=== PATIENT | female | born 1965 | race African-American/Black ===

== ENCOUNTER 2019-07-08 08:28 | Inpatient (IN) | payer MEDICAID, OTHER ==
[~2019-07-08] VITALS: Ht 160 cm; Wt 78.0 kg
[2019-07-08] MEDS ORDERED: SODIUM CHLORIDE 0.9% 1,000 ML IV ONE (08:46)
[2019-07-08] MEDS ORDERED: ONDANSETRON HCL 4MG/2ML INJ IV STA (08:46)
[2019-07-08 09:38] LABS: CHLORIDE 105 mEq/L (98-107); PROTHROMBIN TIME 10.7 sec (9.6-11.0)
[2019-07-08] MEDS ORDERED: ACETAMINOPHEN 325MG TABLET PO STA (09:58)
[2019-07-08] MEDS ORDERED: ACETAMINOPHEN 650MG SUPP PR ONE ×2 (10:15→17:15)
[2019-07-08] MEDS ORDERED: SODIUM CHLORIDE 0.9% 1000ML BAG (SEPSIS BOLUS) IV ONE (10:15)
[2019-07-08] MEDS ORDERED: PIPERACILLIN/TAZ 3.375G PREMIX 50 ML IV ONE (10:30)
[2019-07-08] MEDS ORDERED: VANCOMYCIN 1 G PREMIX 200 ML IV ONE (10:30)
[2019-07-08 10:35] LABS: EOSINOPHILS % 0.2 % (0.0-5.0); HEMATOCRIT. 34.2 % (36.0-48.0); HEMOGLOBIN. 11.4 g/dL (12.0-16.0); LYMPHOCYTES % 16.8 % (20.0-50.0); MEAN CORPUSCULAR HEMOGLOBIN 28.7 pg (28.0-32.0); MEAN CORPUSCULAR VOLUME 86.4 fL (81.0-99.0); MEAN PLATELET VOLUME 11.6 fl (7.4-10.4); MONOCYTES % 2.8 % (2.0-8.0); NEUTROPHILS % 79.2 % (40.0-76.0); RED BLOOD CELL COUNT 3.96 mill/uL (4.2-5.4); RED CELL DISTRIBUTION WIDTH 15.4 % (11.6-14.6)
[2019-07-08 10:37] LABS: PLATELET 26 x1000/uL (130-400)
[2019-07-08 11:41] LABS: PLATELET ESTIMATE MARKEDLY DECREASED
[2019-07-08] MEDS ORDERED: HYDROXYCHLOROQUINE SULFATE 200MG TABLET PO STA (12:40)
[2019-07-08] MEDS ORDERED: SODIUM CHLORIDE 0.45% 1,000 ML IV SCH (13:53)
[2019-07-08] MEDS ORDERED: MORPHINE SULFATE 2 MG/ML CPJ (NOT FOR IM USE) IV PRN (14:00)
[2019-07-08] MEDS ORDERED: MAGNESIUM/ALUMINUM HYDROXIDE/SIMETHICONE 30ML UDC PO PRN (14:00)
[2019-07-08] MEDS ORDERED: ONDANSETRON HCL 4MG/2ML INJ IV PRN (14:00)
[2019-07-08] MEDS: SODIUM CHLORIDE 0.9% 1,000 ML IV SCH (16:21)
[2019-07-08 16:46] LABS: BG BASE EXCESS -7.8 mmol/L (-2.0-2.0); BG CARBOXYHEMOGLOBIN 1.8 % (0.5-1.5); BG DEOXYHEMOGLOBIN 1.4 % (0.0-5.0); BG FRACTION INSPIRED OXYGEN 36; BG HCO3 ACT 15.4 mmol/L (22.0-26.0); BG METHEMOGLOBIN 0.7 % (0.0-1.5); BG OXYGEN SATURATION 98.6 % (92.0-98.5); BG OXYHEMOGLOBIN 96.1 % (94.0-97.0); BG PCO2 24.1 mmHg (35.0-45.0); BG PH 7.422 (7.350-7.450); BG PO2 146.1 mmHg (75.0-100.0); BG SAMPLE SITE RIGHT RADIAL; BG TOTAL HEMOGLOBIN 9.7 g/dL (12.0-18.0); BG VENT MODE NASAL CANNULA
[2019-07-08 18:05] LABS: CLARITY URINE CLOUDY (CLEAR); COLOR URINE ORANGE (YELLOW); KETONES URINE NEGATIVE (NEGATIVE); LEUKOCYTE ESTERASE URINE 1+ (NEGATIVE); NITRITE URINE POSITIVE (NEGATIVE); OCCULT BLOOD URINE TRACE (NEGATIVE); PH URINE 5.5 (4.5-8.0); PROTEIN URINE 2+ (NEGATIVE); SPECIFIC GRAVITY URINE 1.027 (1.005-1.030)
[2019-07-08] MEDS: HYDROXYCHLOROQUINE SULFATE 200MG TABLET PO SCH (21:50)
[2019-07-08] MEDS: ACETAMINOPHEN 325MG TABLET PO PRN (22:07)
[2019-07-08 23:04] VITALS: BP 113/74
[2019-07-08] MEDS ORDERED: ONDA4TAB5 PO (23:14)
[2019-07-08] MEDS ORDERED: FAMO20TA8 PO (23:14)
[2019-07-08] MEDS ORDERED: MECL-159 PO (23:14)
[2019-07-08 23:15] VITALS: BP 113/74
[2019-07-08 23:30] VITALS: BP 110/66
[2019-07-09] VITALS (58 sets, daily range): BP systolic 58–196; BP diastolic 19–110
[2019-07-09] MEDS: SODIUM CHLORIDE 0.9% 1,000 ML IV SCH ×3 (00:47→15:59)
[2019-07-09 06:13] LABS: BASOPHILS % 0.4 % (0.0-2.0); EOSINOPHILS % 0.1 % (0.0-5.0); HEMOGLOBIN. 8.4 g/dL (12.0-16.0); LYMPHOCYTES % 27.6 % (20.0-50.0); MEAN CORPUSCULAR HEMOGLOBIN 29.6 pg (28.0-32.0); MEAN CORPUSCULAR VOLUME 88.1 fL (81.0-99.0); MEAN PLATELET VOLUME 11.2 fl (7.4-10.4); MONOCYTES % 7.3 % (2.0-8.0); NEUTROPHILS % 64.6 % (40.0-76.0); RED BLOOD CELL COUNT 2.84 mill/uL (4.2-5.4); RED CELL DISTRIBUTION WIDTH 15.8 % (11.6-14.6)
[2019-07-09 06:32] LABS: PLATELET 35 x1000/uL (130-400)
[2019-07-09 06:44] LABS: CHLORIDE 114 mEq/L (98-107)
[2019-07-09] MEDS: GUAIFENESIN 600MG ER TABLET PO SCH ×2 (10:00→20:29)
[2019-07-09] MEDS: HYDROXYCHLOROQUINE SULFATE 200MG TABLET PO SCH (10:02)
[2019-07-09] MEDS: BLOOD SUGAR DIAGNOSTIC STRIP TEST SCH ×3 (14:15→20:26)
[2019-07-09 14:54] LABS: BG BASE EXCESS -2.2 mmol/L (-2.0-2.0); BG CARBOXYHEMOGLOBIN 0.3 % (0.5-1.5); BG DEOXYHEMOGLOBIN 6.7 % (0.0-5.0); BG FRACTION INSPIRED OXYGEN 32; BG HCO3 ACT 21.3 mmol/L (22.0-26.0); BG METHEMOGLOBIN 1.1 % (0.0-1.5); BG OXYGEN SATURATION 93.2 % (92.0-98.5); BG OXYHEMOGLOBIN 91.9 % (94.0-97.0); BG PCO2 31.1 mmHg (35.0-45.0); BG PH 7.454 (7.350-7.450); BG PO2 68.5 mmHg (75.0-100.0); BG SAMPLE SITE RIGHT RADIAL; BG TOTAL HEMOGLOBIN 7.9 g/dL (12.0-18.0); BG VENT MODE NASAL CANNULA
[2019-07-09 15:48] LABS: BASOPHILS % 0.9 % (0.0-2.0); HEMATOCRIT. 21.5 % (36.0-48.0); HEMOGLOBIN. 7.3 g/dL (12.0-16.0); LYMPHOCYTES % 22.2 % (20.0-50.0); MEAN CORPUSCULAR HEMOGLOBIN 29.5 pg (28.0-32.0); MEAN CORPUSCULAR VOLUME 87.2 fL (81.0-99.0); MEAN PLATELET VOLUME 11.2 fl (7.4-10.4); MONOCYTES % 7.3 % (2.0-8.0); NEUTROPHILS % 69.6 % (40.0-76.0); RED BLOOD CELL COUNT 2.47 mill/uL (4.2-5.4); RED CELL DISTRIBUTION WIDTH 15.8 % (11.6-14.6)
[2019-07-09 15:50] LABS: PLATELET 40 x1000/uL (130-400)
[2019-07-09 16:05] LABS: HAPTOGLOBIN <31.0 mg/dL (30-200)
[2019-07-09 16:08] LABS: CREATINE KINASE 34 IU/L (26-192)
[2019-07-09] MEDS ORDERED: ACETAMINOPHEN 650MG SUPP PR NR (17:45)
[2019-07-09] MEDS: DEXTROSE 50% WATER 50ML SYRINGE IV PRN (18:22)
[2019-07-09] MEDS ORDERED: ACETAMINOPHEN 650MG SUPP PR PRN (20:00)
[2019-07-09] MEDS ORDERED: SUCCINYLCHOLINE CHLORIDE 200MG/10ML IV ONE (20:15)
[2019-07-09] MEDS ORDERED: ETOMIDATE 2MG/ML 10ML VIAL IV ONE (20:15)
[2019-07-09] MEDS ORDERED: VECURONIUM BROMIDE 10 MG/VIAL IV ONE (20:15)
[2019-07-09] MEDS ORDERED: PHENYLEPHRINE 80 MG in DEXT 5% WATER 492 ML IV PRN (20:19)
[2019-07-09] MEDS: PROPOFOL 10MG/ML 100ML 100 ML IV PRN (20:27)
[2019-07-09] MEDS ORDERED: IPRATROPIUM/ALBUTEROL 0.5-3(2.5)MG/3ML NEB HHN PRN (21:00)
[2019-07-09] MEDS: FENTANYL CITRATE/PF 500 MCG in SODIUM CHLORIDE 0.9% 40 ML IV PRN (21:17)
[2019-07-09] MEDS: NOREPINEPHRINE 16 MG in DEXT 5% WATER 234 ML IV PRN (21:27)
[2019-07-09] MEDS ORDERED: DOPAMINE 800MG PREMIX (DOUBLE) 250 ML IV PRN (21:45)
[2019-07-09 21:52] LABS: BG BASE EXCESS -13.6 mmol/L (-2.0-2.0); BG CARBOXYHEMOGLOBIN 0.3 % (0.5-1.5); BG DEOXYHEMOGLOBIN 0.6 % (0.0-5.0); BG FRACTION INSPIRED OXYGEN 100; BG HCO3 ACT 11.6 mmol/L (22.0-26.0); BG OXYGEN SATURATION 99.4 % (92.0-98.5); BG OXYHEMOGLOBIN 98.1 % (94.0-97.0); BG PCO2 24.9 mmHg (35.0-45.0); BG PH 7.287 (7.350-7.450); BG PO2 475.7 mmHg (75.0-100.0); BG SAMPLE SITE LEFT RADIAL; BG TIDAL VOLUME(mL) 500 mL; BG TOTAL HEMOGLOBIN 7.6 g/dL (12.0-18.0); BG VENT MODE VENT - A/C; BG VENT RATE 18 set
[2019-07-09] MEDS ORDERED: SODIUM BICARBONATE 8.4% 1 MEQ/ML 50ML SYR IV NR (22:15)
[2019-07-10] VITALS (95 sets, daily range): BP systolic 87–169; BP diastolic 35–95
[2019-07-10] MEDS: IPRATROPIUM/ALBUTEROL 0.5-3(2.5)MG/3ML NEB HHN SCH ×6 (00:22→20:15)
[2019-07-10] MEDS: BLOOD SUGAR DIAGNOSTIC STRIP TEST SCH ×6 (00:29→20:17)
[2019-07-10] MEDS: PROPOFOL 10MG/ML 100ML 100 ML IV PRN (00:29)
[2019-07-10] MEDS: DEXTROSE 50% WATER 50ML SYRINGE IV PRN ×2 (03:47→09:07)
[2019-07-10 06:32] LABS: BASOPHILS % 0.8 % (0.0-2.0); EOSINOPHILS % 0.3 % (0.0-5.0); LYMPHOCYTES % 24.9 % (20.0-50.0); MEAN CORPUSCULAR VOLUME 88.4 fL (81.0-99.0); MONOCYTES % 8.1 % (2.0-8.0); NEUTROPHILS % 65.9 % (40.0-76.0); RED BLOOD CELL COUNT 2.23 mill/uL (4.2-5.4); RED CELL DISTRIBUTION WIDTH 16.4 % (11.6-14.6)
[2019-07-10 07:04] LABS: HEMATOCRIT. 19.7 % (36.0-48.0); HEMOGLOBIN. 6.7 g/dL (12.0-16.0)
[2019-07-10 07:17] LABS: CHLORIDE 115 mEq/L (98-107)
[2019-07-10 07:39] LABS: HAPTOGLOBIN <31.0 mg/dL (30-200)
[2019-07-10] MEDS: GUAIFENESIN 600MG ER TABLET PO SCH (08:59)
[2019-07-10] MEDS: FENTANYL CITRATE/PF 500 MCG in SODIUM CHLORIDE 0.9% 40 ML IV PRN ×2 (09:00→18:40)
[2019-07-10 09:12] LABS: BG BASE EXCESS -12.8 mmol/L (-2.0-2.0); BG CARBOXYHEMOGLOBIN 0.3 % (0.5-1.5); BG DEOXYHEMOGLOBIN 1.1 % (0.0-5.0); BG FRACTION INSPIRED OXYGEN 50; BG HCO3 ACT 13.4 mmol/L (22.0-26.0); BG METHEMOGLOBIN 0.4 % (0.0-1.5); BG OXYGEN SATURATION 98.9 % (92.0-98.5); BG OXYHEMOGLOBIN 98.2 % (94.0-97.0); BG PCO2 31.6 mmHg (35.0-45.0); BG PH 7.245 (7.350-7.450); BG SAMPLE SITE RIGHT RADIAL; BG TIDAL VOLUME(mL) 500 mL; BG TOTAL HEMOGLOBIN 9.2 g/dL (12.0-18.0); BG VENT MODE VENT - A/C; BG VENT RATE 18 set
[2019-07-10 10:17] LABS: HEPATITIS B SURFACE ANTIGEN NEGATIVE
[2019-07-10] MEDS ORDERED: MIDAZOLAM HCL 100 MG in DEXT 5% WATER 80 ML IV PRN (10:30)
[2019-07-10] MEDS ORDERED: LIDOCAINE HCL 1% 20ML VIAL (Pyxis) INJ ONE (10:51)
[2019-07-10] MEDS ORDERED: SODIUM BICARBONATE 4% (2.4MEQ) 5ML VIAL IV ONE (10:51)
[2019-07-10 11:47] LABS: CLARITY URINE TURBID (CLEAR); COLOR URINE RED (YELLOW); KETONES URINE NEGATIVE (NEGATIVE); LEUKOCYTE ESTERASE URINE 3+ (NEGATIVE); NITRITE URINE POSITIVE (NEGATIVE); OCCULT BLOOD URINE TRACE (NEGATIVE); PROTEIN URINE TRACE (NEGATIVE); SPECIFIC GRAVITY URINE 1.025 (1.005-1.030)
[2019-07-10] MEDS: SODIUM BICARBONATE 150 MEQ in DEXTROSE 5% WATER 850 ML IV SCH ×2 (12:29→17:12)
[2019-07-10 13:20] LABS: CREATINE KINASE 665 IU/L (26-192)
[2019-07-10 13:47] LABS: BG BASE EXCESS -6.5 mmol/L (-2.0-2.0); BG CARBOXYHEMOGLOBIN 0.3 % (0.5-1.5); BG DEOXYHEMOGLOBIN 1.7 % (0.0-5.0); BG FRACTION INSPIRED OXYGEN 40; BG HCO3 ACT 18.2 mmol/L (22.0-26.0); BG METHEMOGLOBIN 1.1 % (0.0-1.5); BG OXYGEN SATURATION 98.3 % (92.0-98.5); BG OXYHEMOGLOBIN 96.9 % (94.0-97.0); BG PCO2 33.2 mmHg (35.0-45.0); BG PH 7.356 (7.350-7.450); BG PO2 147.8 mmHg (75.0-100.0); BG SAMPLE SITE RIGHT RADIAL; BG TIDAL VOLUME(mL) 500 mL; BG TOTAL HEMOGLOBIN 10.1 g/dL (12.0-18.0); BG VENT MODE VENT - A/C; BG VENT RATE 20 set
[2019-07-10 15:32] LABS: HEPATITIS B SURFACE ANTIGEN NEGATIVE
[2019-07-10] MEDS ORDERED: [UNRECOGNIZED DRUG - OTHER] PO SCH (18:00)
[2019-07-10] MEDS: NOREPINEPHRINE 16 MG in DEXT 5% WATER 234 ML IV PRN (18:39)
[2019-07-11] VITALS (99 sets, daily range): BP systolic 87–135; BP diastolic 51–105
[2019-07-11] MEDS: IPRATROPIUM/ALBUTEROL 0.5-3(2.5)MG/3ML NEB HHN SCH ×6 (00:01→20:45)
[2019-07-11] MEDS: SODIUM BICARBONATE 150 MEQ in DEXTROSE 5% WATER 850 ML IV SCH ×2 (00:16→10:01)
[2019-07-11] MEDS: BLOOD SUGAR DIAGNOSTIC STRIP TEST SCH ×6 (00:16→20:37)
[2019-07-11] MEDS: GUAIFENESIN 200MG/10ML SUGAR FREE UDC PO SCH ×4 (00:18→18:14)
[2019-07-11] MEDS: ACETAMINOPHEN 325MG TABLET PO PRN (01:16)
[2019-07-11] MEDS ORDERED: [UNRECOGNIZED DRUG - OTHER] PO SCH (02:00)
[2019-07-11 05:41] LABS: BASOPHILS % 0.5 % (0.0-2.0); EOSINOPHILS % 0.6 % (0.0-5.0); HEMATOCRIT. 26.6 % (36.0-48.0); HEMOGLOBIN. 9.3 g/dL (12.0-16.0); MEAN CORPUSCULAR HEMOGLOBIN 29.6 pg (28.0-32.0); MEAN CORPUSCULAR VOLUME 85.1 fL (81.0-99.0); MEAN PLATELET VOLUME 10.8 fl (7.4-10.4); MONOCYTES % 5.8 % (2.0-8.0); NEUTROPHILS % 68.1 % (40.0-76.0); PLATELET 86 x1000/uL (130-400); RED BLOOD CELL COUNT 3.13 mill/uL (4.2-5.4); RED CELL DISTRIBUTION WIDTH 16.2 % (11.6-14.6)
[2019-07-11] MEDS: FENTANYL CITRATE/PF 500 MCG in SODIUM CHLORIDE 0.9% 40 ML IV PRN (05:45)
[2019-07-11 06:22] LABS: CHLORIDE 108 mEq/L (98-107)
[2019-07-11 06:32] LABS: CREATINE KINASE 709 IU/L (26-192)
[2019-07-11 07:49] LABS: BG BASE EXCESS 2.8 mmol/L (-2.0-2.0); BG CARBOXYHEMOGLOBIN 0.3 % (0.5-1.5); BG DEOXYHEMOGLOBIN 1.4 % (0.0-5.0); BG FRACTION INSPIRED OXYGEN 40; BG HCO3 ACT 25.9 mmol/L (22.0-26.0); BG METHEMOGLOBIN 0.8 % (0.0-1.5); BG OXYGEN SATURATION 98.6 % (92.0-98.5); BG OXYHEMOGLOBIN 97.5 % (94.0-97.0); BG PCO2 33.8 mmHg (35.0-45.0); BG PH 7.502 (7.350-7.450); BG PO2 145.4 mmHg (75.0-100.0); BG SAMPLE SITE RIGHT RADIAL; BG TIDAL VOLUME(mL) 500 mL; BG TOTAL HEMOGLOBIN 9.4 g/dL (12.0-18.0); BG VENT MODE VENT - A/C; BG VENT RATE 20 set
[2019-07-11 09:21] LABS: HAPTOGLOBIN <31.0 mg/dL (30-200)
[2019-07-11] MEDS: DEXT 5%/0.45% NACL 1000ML 1,000 ML IV SCH ×2 (10:36→20:39)
[2019-07-11 13:06] LABS: INR 1.1; PROTHROMBIN TIME 11.7 sec (9.6-11.0)
[2019-07-11 13:13] LABS: BG BASE EXCESS 4.8 mmol/L (-2.0-2.0); BG CARBOXYHEMOGLOBIN 0.5 % (0.5-1.5); BG FRACTION INSPIRED OXYGEN 35; BG HCO3 ACT 27.7 mmol/L (22.0-26.0); BG METHEMOGLOBIN 1.6 % (0.0-1.5); BG OXYHEMOGLOBIN 96.9 % (94.0-97.0); BG PCO2 34.4 mmHg (35.0-45.0); BG PH 7.524 (7.350-7.450); BG PO2 173.9 mmHg (75.0-100.0); BG SAMPLE SITE RIGHT RADIAL; BG TIDAL VOLUME(mL) 500 mL; BG TOTAL HEMOGLOBIN 8.8 g/dL (12.0-18.0); BG VENT MODE VENT - A/C; BG VENT RATE 16 set
[2019-07-11] MEDS: [UNRECOGNIZED DRUG - OTHER] PO SCH (13:59)
[2019-07-11] MEDS ORDERED: LIDOCAINE HCL 1% 20ML VIAL (Pyxis) INJ ONE (14:28)
[2019-07-11] MEDS ORDERED: HEPARIN 1000 UNITS/ML 10ML ONE (14:29)
[2019-07-11] MEDS ORDERED: LIDOCAINE HCL/PF 1% 2ML VIAL ONE (15:53)
[2019-07-11 18:10] LABS: HEPATITIS B SURFACE AB 155.9 mIU/mL
[2019-07-12] VITALS (86 sets, daily range): BP systolic 87–146; BP diastolic 40–85
[2019-07-12] MEDS: IPRATROPIUM/ALBUTEROL 0.5-3(2.5)MG/3ML NEB HHN SCH ×5 (00:11→20:14)
[2019-07-12] MEDS: [UNRECOGNIZED DRUG - OTHER] PO SCH ×2 (03:02→15:00)
[2019-07-12] MEDS: BLOOD SUGAR DIAGNOSTIC STRIP TEST SCH ×6 (04:00→20:00)
[2019-07-12 05:52] LABS: BASOPHILS % 0.6 % (0.0-2.0); EOSINOPHILS % 0.6 % (0.0-5.0); HEMATOCRIT. 24.9 % (36.0-48.0); HEMOGLOBIN. 8.8 g/dL (12.0-16.0); LYMPHOCYTES % 25.1 % (20.0-50.0); MEAN CORPUSCULAR HEMOGLOBIN 29.5 pg (28.0-32.0); MONOCYTES % 8.3 % (2.0-8.0); NEUTROPHILS % 65.4 % (40.0-76.0); PLATELET 105 x1000/uL (130-400); RED BLOOD CELL COUNT 2.97 mill/uL (4.2-5.4); RED CELL DISTRIBUTION WIDTH 15.7 % (11.6-14.6)
[2019-07-12] MEDS: GUAIFENESIN 200MG/10ML SUGAR FREE UDC PO SCH ×4 (06:07→18:31)
[2019-07-12] MEDS: DEXT 5%/0.45% NACL 1000ML 1,000 ML IV SCH (06:09)
[2019-07-12 08:29] LABS: BG BASE EXCESS 4.7 mmol/L (-2.0-2.0); BG FRACTION INSPIRED OXYGEN 30; BG HCO3 ACT 27.3 mmol/L (22.0-26.0); BG PCO2 34.3 mmHg (35.0-45.0); BG PH 7.519 (7.350-7.450); BG PO2 85.3 mmHg (75.0-100.0); BG SAMPLE SITE RIGHT RADIAL; BG TIDAL VOLUME(mL) 500 mL; BG VENT MODE VENT - A/C; BG VENT RATE 14 set
[2019-07-12 10:02] LABS: CHLORIDE 103 mEq/L (98-107)
[2019-07-12 10:27] LABS: HAPTOGLOBIN <31.0 mg/dL (30-200)
[2019-07-12] MEDS: ACETAMINOPHEN 325MG TABLET PO PRN (13:34)
[2019-07-12] MEDS ORDERED: VANCOMYCIN 2,000 MG in DEXT 5% WATER 500 ML IV NR (17:00)
[2019-07-12] MEDS: CEFEPIME 1,000 MG in DEXTROSE 5% WATER 50 ML IV SCH (17:00)
[2019-07-13] VITALS (99 sets, daily range): BP systolic 93–140; BP diastolic 47–100
[2019-07-13] MEDS: IPRATROPIUM/ALBUTEROL 0.5-3(2.5)MG/3ML NEB HHN SCH ×6 (00:35→20:17)
[2019-07-13] MEDS: GUAIFENESIN 200MG/10ML SUGAR FREE UDC PO SCH ×3 (00:55→12:00)
[2019-07-13] MEDS: BLOOD SUGAR DIAGNOSTIC STRIP TEST SCH ×7 (00:55→23:45)
[2019-07-13] MEDS: [UNRECOGNIZED DRUG - OTHER] PO SCH (02:36)
[2019-07-13] MEDS: DEXT 5%/0.45% NACL 1000ML 1,000 ML IV SCH (06:04)
[2019-07-13 06:47] LABS: MEAN CORPUSCULAR VOLUME 84.3 fL (81.0-99.0); MEAN PLATELET VOLUME 11.4 fl (7.4-10.4); PLATELET 90 x1000/uL (130-400); RED BLOOD CELL COUNT 2.43 mill/uL (4.2-5.4)
[2019-07-13 06:56] LABS: HEMATOCRIT. 20.5 % (36.0-48.0)
[2019-07-13 07:42] LABS: BG BASE EXCESS 1.7 mmol/L (-2.0-2.0); BG CARBOXYHEMOGLOBIN 0.6 % (0.5-1.5); BG DEOXYHEMOGLOBIN 2.7 % (0.0-5.0); BG HCO3 ACT 25.8 mmol/L (22.0-26.0); BG METHEMOGLOBIN 2.3 % (0.0-1.5); BG OXYGEN SATURATION 97.2 % (92.0-98.5); BG OXYHEMOGLOBIN 94.4 % (94.0-97.0); BG PCO2 37.9 mmHg (35.0-45.0); BG PO2 98.7 mmHg (75.0-100.0); BG SAMPLE SITE RIGHT RADIAL; BG TIDAL VOLUME(mL) 500 mL; BG TOTAL HEMOGLOBIN 6.9 g/dL (12.0-18.0); BG VENT MODE VENT - A/C; BG VENT RATE 12 set
[2019-07-13] MEDS: ACETAMINOPHEN 325MG TABLET PO PRN ×2 (09:16→17:41)
[2019-07-13 10:28] LABS: CLARITY URINE TURBID (CLEAR); COLOR URINE ORANGE (YELLOW); KETONES URINE NEGATIVE (NEGATIVE); LEUKOCYTE ESTERASE URINE 3+ (NEGATIVE); NITRITE URINE POSITIVE (NEGATIVE); OCCULT BLOOD URINE 1+ (NEGATIVE); PH URINE 7.5 (4.5-8.0); PROTEIN URINE 1+ (NEGATIVE)
[2019-07-13 12:11] LABS: NUCLEATED RED BLOOD CELLS 2 /100 WBC
[2019-07-13 12:14] LABS: PLATELET ESTIMATE DECREASED
[2019-07-13] MEDS: CEFEPIME 1,000 MG in DEXTROSE 5% WATER 50 ML IV SCH (14:14)
[2019-07-13 19:09] LABS: HEMATOCRIT 21.3 % (36.0-48.0); HEMOGLOBIN 7.4 g/dL (12.0-16.0); MEAN CORPUSCULAR HEMOGLOBIN 29.3 pg (28.0-32.0); MEAN CORPUSCULAR VOLUME 84.7 fL (81.0-99.0); PLATELET 123 x1000/uL (130-400); RED BLOOD CELL COUNT 2.52 mill/uL (4.2-5.4); RED CELL DISTRIBUTION WIDTH 16.2 % (11.6-14.6)
[2019-07-14] VITALS (87 sets, daily range): BP systolic 101–151; BP diastolic 53–87
[2019-07-14] MEDS: IPRATROPIUM/ALBUTEROL 0.5-3(2.5)MG/3ML NEB HHN SCH ×6 (00:22→20:17)
[2019-07-14] MEDS: BLOOD SUGAR DIAGNOSTIC STRIP TEST SCH ×5 (04:26→20:00)
[2019-07-14 05:42] LABS: BASOPHILS % 0.5 % (0.0-2.0); EOSINOPHILS % 0.8 % (0.0-5.0); HEMATOCRIT. 21.8 % (36.0-48.0); HEMOGLOBIN. 7.6 g/dL (12.0-16.0); LYMPHOCYTES % 25.6 % (20.0-50.0); MEAN CORPUSCULAR HEMOGLOBIN 29.5 pg (28.0-32.0); MEAN CORPUSCULAR VOLUME 85.2 fL (81.0-99.0); MEAN PLATELET VOLUME 11.9 fl (7.4-10.4); MONOCYTES % 11.9 % (2.0-8.0); NEUTROPHILS % 61.2 % (40.0-76.0); PLATELET 132 x1000/uL (130-400); RED BLOOD CELL COUNT 2.56 mill/uL (4.2-5.4); RED CELL DISTRIBUTION WIDTH 16.2 % (11.6-14.6)
[2019-07-14 06:03] LABS: PHOSPHORUS 4.9 mg/dL (2.5-4.9)
[2019-07-14 08:13] LABS: BG BASE EXCESS 0.3 mmol/L (-2.0-2.0); BG CARBOXYHEMOGLOBIN 0.8 % (0.5-1.5); BG DEOXYHEMOGLOBIN 1.8 % (0.0-5.0); BG HCO3 ACT 24.5 mmol/L (22.0-26.0); BG METHEMOGLOBIN 1.3 % (0.0-1.5); BG OXYGEN SATURATION 98.2 % (92.0-98.5); BG OXYHEMOGLOBIN 96.1 % (94.0-97.0); BG PCO2 37.1 mmHg (35.0-45.0); BG PH 7.437 (7.350-7.450); BG PO2 110.9 mmHg (75.0-100.0); BG SAMPLE SITE RIGHT RADIAL; BG TIDAL VOLUME(mL) 500 mL; BG TOTAL HEMOGLOBIN 7.4 g/dL (12.0-18.0); BG VENT MODE VENT - A/C; BG VENT RATE 12 set
[2019-07-14] MEDS: ACETAMINOPHEN 325MG TABLET PO PRN (12:25)
[2019-07-14] MEDS: CEFEPIME 1,000 MG in DEXTROSE 5% WATER 50 ML IV SCH (15:03)
[2019-07-15] VITALS (64 sets, daily range): BP systolic 67–165; BP diastolic 17–111
[2019-07-15] MEDS: IPRATROPIUM/ALBUTEROL 0.5-3(2.5)MG/3ML NEB HHN SCH ×6 (00:23→20:33)
[2019-07-15] MEDS: BLOOD SUGAR DIAGNOSTIC STRIP TEST SCH ×6 (00:30→20:42)
[2019-07-15] MEDS ORDERED: MORPHINE SULFATE 2 MG/ML CPJ (NOT FOR IM USE) IV PRN (02:45)
[2019-07-15 05:43] LABS: BASOPHILS % 0.3 % (0.0-2.0); EOSINOPHILS % 1.3 % (0.0-5.0); HEMOGLOBIN. 7.3 g/dL (12.0-16.0); LYMPHOCYTES % 20.4 % (20.0-50.0); MEAN CORPUSCULAR HEMOGLOBIN 29.3 pg (28.0-32.0); MEAN CORPUSCULAR VOLUME 84.7 fL (81.0-99.0); MONOCYTES % 12.9 % (2.0-8.0); NEUTROPHILS % 65.1 % (40.0-76.0); RED BLOOD CELL COUNT 2.48 mill/uL (4.2-5.4); RED CELL DISTRIBUTION WIDTH 16.3 % (11.6-14.6)
[2019-07-15 07:23] LABS: PLATELET 190 x1000/uL (130-400)
[2019-07-15 07:24] LABS: MEAN PLATELET VOLUME 10.8 fl (7.4-10.4)
[2019-07-15 08:46] LABS: BG CARBOXYHEMOGLOBIN 1.2 % (0.5-1.5); BG DEOXYHEMOGLOBIN 3.8 % (0.0-5.0); BG FRACTION INSPIRED OXYGEN 35; BG HCO3 ACT 29.3 mmol/L (22.0-26.0); BG METHEMOGLOBIN 1.1 % (0.0-1.5); BG OXYGEN SATURATION 96.1 % (92.0-98.5); BG OXYHEMOGLOBIN 93.9 % (94.0-97.0); BG PCO2 42.3 mmHg (35.0-45.0); BG PH 7.459 (7.350-7.450); BG PO2 84.5 mmHg (75.0-100.0); BG SAMPLE SITE RIGHT RADIAL; BG TIDAL VOLUME(mL) 500 mL; BG TOTAL HEMOGLOBIN 5.5 g/dL (12.0-18.0); BG VENT MODE VENT - CPAP; BG VENT RATE 12 set
[2019-07-15] MEDS: MEROPENEM 500 MG in SODIUM CHLORIDE 0.9% 50 ML IV SCH (14:56)
[2019-07-15] MEDS: ACETAMINOPHEN 325MG TABLET PO PRN (15:50)
[2019-07-15] MEDS: MORPHINE SULFATE 2 MG/ML CPJ (NOT FOR IM USE) IV PRN ×2 (16:18→23:08)
[2019-07-16] VITALS (66 sets, daily range): BP systolic 110–203; BP diastolic 53–115
[2019-07-16] MEDS: ACETYLCYSTEINE 100MG/ML 10% VIAL 4ML INH SCH ×3 (00:13→15:13)
[2019-07-16] MEDS: IPRATROPIUM/ALBUTEROL 0.5-3(2.5)MG/3ML NEB HHN SCH ×6 (00:14→20:35)
[2019-07-16] MEDS: BLOOD SUGAR DIAGNOSTIC STRIP TEST SCH ×6 (00:27→20:41)
[2019-07-16 06:12] LABS: BASOPHILS % 0.4 % (0.0-2.0); EOSINOPHILS % 1.5 % (0.0-5.0); LYMPHOCYTES % 18.6 % (20.0-50.0); MEAN CORPUSCULAR HEMOGLOBIN 28.7 pg (28.0-32.0); MEAN CORPUSCULAR VOLUME 84.3 fL (81.0-99.0); MEAN PLATELET VOLUME 10.2 fl (7.4-10.4); MONOCYTES % 11.9 % (2.0-8.0); NEUTROPHILS % 67.6 % (40.0-76.0); PLATELET 203 x1000/uL (130-400); RED BLOOD CELL COUNT 2.31 mill/uL (4.2-5.4); RED CELL DISTRIBUTION WIDTH 15.5 % (11.6-14.6)
[2019-07-16 06:54] LABS: HEMOGLOBIN. 6.6 g/dL (12.0-16.0)
[2019-07-16 06:55] LABS: HEMATOCRIT. 19.5 % (36.0-48.0)
[2019-07-16 10:09] LABS: BG BASE EXCESS 1.1 mmol/L (-2.0-2.0); BG CARBOXYHEMOGLOBIN 0.3 % (0.5-1.5); BG DEOXYHEMOGLOBIN 15.5 % (0.0-5.0); BG FRACTION INSPIRED OXYGEN 40; BG HCO3 ACT 24.1 mmol/L (22.0-26.0); BG METHEMOGLOBIN 0.2 % (0.0-1.5); BG OXYGEN SATURATION 84.4 % (92.0-98.5); BG PCO2 32.2 mmHg (35.0-45.0); BG PH 7.492 (7.350-7.450); BG PO2 47.9 mmHg (75.0-100.0); BG SAMPLE SITE RIGHT RADIAL; BG TIDAL VOLUME(mL) 500 mL; BG TOTAL HEMOGLOBIN 9.5 g/dL (12.0-18.0); BG VENT MODE VENT - A/C; BG VENT RATE 12 set
[2019-07-16 11:39] LABS: BG BASE EXCESS 3.2 mmol/L (-2.0-2.0); BG CARBOXYHEMOGLOBIN 0.3 % (0.5-1.5); BG DEOXYHEMOGLOBIN 5.6 % (0.0-5.0); BG FRACTION INSPIRED OXYGEN 40; BG HCO3 ACT 26.4 mmol/L (22.0-26.0); BG METHEMOGLOBIN 0.4 % (0.0-1.5); BG OXYGEN SATURATION 94.4 % (92.0-98.5); BG OXYHEMOGLOBIN 93.7 % (94.0-97.0); BG PCO2 34.5 mmHg (35.0-45.0); BG PH 7.501 (7.350-7.450); BG PO2 67.6 mmHg (75.0-100.0); BG SAMPLE SITE RIGHT RADIAL; BG TIDAL VOLUME(mL) 500 mL; BG TOTAL HEMOGLOBIN 9.5 g/dL (12.0-18.0); BG VENT MODE VENT - A/C; BG VENT RATE 12 set
[2019-07-16] MEDS: LORAZEPAM 2MG/ML CPJ IV PRN (14:06)
[2019-07-16] MEDS: MEROPENEM 500 MG in SODIUM CHLORIDE 0.9% 50 ML IV SCH (14:06)
[2019-07-16 17:17] LABS: HEMATOCRIT 26.2 % (36.0-48.0); MEAN CORPUSCULAR HEMOGLOBIN 28.7 pg (28.0-32.0); MEAN CORPUSCULAR VOLUME 83.4 fL (81.0-99.0); PLATELET 217 x1000/uL (130-400); RED BLOOD CELL COUNT 3.13 mill/uL (4.2-5.4); RED CELL DISTRIBUTION WIDTH 16.1 % (11.6-14.6)
[2019-07-16] MEDS: MORPHINE SULFATE 2 MG/ML CPJ (NOT FOR IM USE) IV PRN (22:00)
[2019-07-17] VITALS (66 sets, daily range): BP systolic 92–195; BP diastolic 37–119
[2019-07-17] MEDS: BLOOD SUGAR DIAGNOSTIC STRIP TEST SCH ×6 (00:13→20:00)
[2019-07-17] MEDS: LORAZEPAM 2MG/ML CPJ IV PRN ×3 (00:15→22:42)
[2019-07-17] MEDS: IPRATROPIUM/ALBUTEROL 0.5-3(2.5)MG/3ML NEB HHN SCH ×6 (00:23→20:41)
[2019-07-17] MEDS: ACETYLCYSTEINE 100MG/ML 10% VIAL 4ML INH SCH ×3 (00:24→16:00)
[2019-07-17 06:28] LABS: HEMATOCRIT. 25.1 % (36.0-48.0); HEMOGLOBIN. 8.6 g/dL (12.0-16.0); MEAN CORPUSCULAR HEMOGLOBIN 28.5 pg (28.0-32.0); MEAN CORPUSCULAR VOLUME 82.9 fL (81.0-99.0); MEAN PLATELET VOLUME 9.7 fl (7.4-10.4); PLATELET 222 x1000/uL (130-400); RED BLOOD CELL COUNT 3.03 mill/uL (4.2-5.4); RED CELL DISTRIBUTION WIDTH 16.3 % (11.6-14.6)
[2019-07-17 06:35] LABS: CHLORIDE 107 mEq/L (98-107)
[2019-07-17 06:53] LABS: HAPTOGLOBIN <31.0 mg/dL (30-200)
[2019-07-17 08:24] LABS: ATYPICAL LYMPHOCYTES 1; NUCLEATED RED BLOOD CELLS 1 /100 WBC; PLATELET ESTIMATE NORMAL
[2019-07-17 09:15] LABS: BG BASE EXCESS 0.1 mmol/L (-2.0-2.0); BG CARBOXYHEMOGLOBIN 0.1 % (0.5-1.5); BG DEOXYHEMOGLOBIN 4.2 % (0.0-5.0); BG FRACTION INSPIRED OXYGEN 35; BG HCO3 ACT 22.1 mmol/L (22.0-26.0); BG METHEMOGLOBIN 0.4 % (0.0-1.5); BG OXYHEMOGLOBIN 95.3 % (94.0-97.0); BG PCO2 29.1 mmHg (35.0-45.0); BG PH 7.498 (7.350-7.450); BG PO2 83.8 mmHg (75.0-100.0); BG SAMPLE SITE RIGHT RADIAL; BG TIDAL VOLUME(mL) 500 mL; BG TOTAL HEMOGLOBIN 8.8 g/dL (12.0-18.0); BG VENT MODE VENT - A/C; BG VENT RATE 12 set
[2019-07-17] MEDS: FOLIC ACID/VITAMIN B COMP W-C TABLET NG SCH (09:15)
[2019-07-17] MEDS: MORPHINE SULFATE 2 MG/ML CPJ (NOT FOR IM USE) IV PRN (11:34)
[2019-07-17] MEDS: MEROPENEM 500 MG in SODIUM CHLORIDE 0.9% 50 ML IV SCH (15:29)
[2019-07-17 17:12] LABS: HIV 1 ABS Negative (Negative); HIV 2 ABS Negative (Negative); HIV SCREEN 4G Reactive (Non Reactive); INTERPRETATION Negative (.)
[2019-07-17] MEDS: HYDRALAZINE 20MG/ML VIAL IV PRN (22:42)
[2019-07-18] VITALS (67 sets, daily range): BP systolic 107–173; BP diastolic 53–102
[2019-07-18] MEDS: IPRATROPIUM/ALBUTEROL 0.5-3(2.5)MG/3ML NEB HHN SCH ×6 (00:29→20:41)
[2019-07-18] MEDS: ACETYLCYSTEINE 100MG/ML 10% VIAL 4ML INH SCH ×2 (00:29→15:10)
[2019-07-18] MEDS: LORAZEPAM 2MG/ML CPJ IV PRN ×2 (03:32→20:23)
[2019-07-18] MEDS: BLOOD SUGAR DIAGNOSTIC STRIP TEST SCH ×7 (04:00→23:38)
[2019-07-18 06:03] LABS: BASOPHILS % 0.5 % (0.0-2.0); EOSINOPHILS % 2.4 % (0.0-5.0); HEMATOCRIT. 25.2 % (36.0-48.0); HEMOGLOBIN. 8.5 g/dL (12.0-16.0); LYMPHOCYTES % 18.3 % (20.0-50.0); MEAN CORPUSCULAR HEMOGLOBIN 28.5 pg (28.0-32.0); MEAN CORPUSCULAR VOLUME 84.3 fL (81.0-99.0); MEAN PLATELET VOLUME 9.6 fl (7.4-10.4); MONOCYTES % 12.2 % (2.0-8.0); NEUTROPHILS % 66.6 % (40.0-76.0); PLATELET 300 x1000/uL (130-400); RED BLOOD CELL COUNT 2.99 mill/uL (4.2-5.4); RED CELL DISTRIBUTION WIDTH 16.2 % (11.6-14.6)
[2019-07-18] MEDS: MORPHINE SULFATE 2 MG/ML CPJ (NOT FOR IM USE) IV PRN ×2 (08:35→16:43)
[2019-07-18] MEDS ORDERED: QUETIAPINE FUMARATE 25MG TABLET PO SCH (09:00)
[2019-07-18] MEDS: FOLIC ACID/VITAMIN B COMP W-C TABLET NG SCH (09:02)
[2019-07-18 09:41] LABS: BG BASE EXCESS -2.4 mmol/L (-2.0-2.0); BG CARBOXYHEMOGLOBIN 0.2 % (0.5-1.5); BG DEOXYHEMOGLOBIN 5.4 % (0.0-5.0); BG FRACTION INSPIRED OXYGEN 35; BG HCO3 ACT 21.2 mmol/L (22.0-26.0); BG METHEMOGLOBIN 0.1 % (0.0-1.5); BG OXYGEN SATURATION 94.6 % (92.0-98.5); BG OXYHEMOGLOBIN 94.3 % (94.0-97.0); BG PCO2 31.5 mmHg (35.0-45.0); BG PH 7.446 (7.350-7.450); BG PO2 82.5 mmHg (75.0-100.0); BG SAMPLE SITE RIGHT RADIAL; BG TIDAL VOLUME(mL) 500 mL; BG TOTAL HEMOGLOBIN 8.5 g/dL (12.0-18.0); BG VENT MODE VENT - A/C; BG VENT RATE 12 set
[2019-07-18] MEDS: HYDRALAZINE 20MG/ML VIAL IV PRN (14:07)
[2019-07-18] MEDS: MEROPENEM 500 MG in SODIUM CHLORIDE 0.9% 50 ML IV SCH (14:34)
[2019-07-18] MEDS ORDERED: VANCOMYCIN 1500MG in DEXTROSE 5% WATER 250ML IV SCH (16:00)
[2019-07-18] MEDS ORDERED: LEVOFLOXACIN 500MG PREMIX 100 ML IV SCH (16:00)
[2019-07-19] VITALS (80 sets, daily range): BP systolic 104–166; BP diastolic 46–95
[2019-07-19] MEDS: IPRATROPIUM/ALBUTEROL 0.5-3(2.5)MG/3ML NEB HHN SCH ×6 (00:29→21:22)
[2019-07-19] MEDS: ACETYLCYSTEINE 100MG/ML 10% VIAL 4ML INH SCH ×4 (00:29→16:58)
[2019-07-19] MEDS: BLOOD SUGAR DIAGNOSTIC STRIP TEST SCH ×6 (03:29→23:41)
[2019-07-19 06:07] LABS: HEMATOCRIT. 25.6 % (36.0-48.0); HEMOGLOBIN. 8.6 g/dL (12.0-16.0); MEAN CORPUSCULAR HEMOGLOBIN 28.5 pg (28.0-32.0); MEAN CORPUSCULAR VOLUME 85.4 fL (81.0-99.0); MEAN PLATELET VOLUME 9.3 fl (7.4-10.4); PLATELET 341 x1000/uL (130-400); RED CELL DISTRIBUTION WIDTH 16.2 % (11.6-14.6)
[2019-07-19 08:31] LABS: BG BASE EXCESS 3.3 mmol/L (-2.0-2.0); BG CARBOXYHEMOGLOBIN 0.3 % (0.5-1.5); BG FRACTION INSPIRED OXYGEN 40; BG HCO3 ACT 27.9 mmol/L (22.0-26.0); BG METHEMOGLOBIN 0.4 % (0.0-1.5); BG OXYHEMOGLOBIN 97.3 % (94.0-97.0); BG PCO2 42.5 mmHg (35.0-45.0); BG PH 7.435 (7.350-7.450); BG PO2 124.5 mmHg (75.0-100.0); BG SAMPLE SITE RIGHT RADIAL; BG TIDAL VOLUME(mL) 500 mL; BG TOTAL HEMOGLOBIN 8.5 g/dL (12.0-18.0); BG VENT MODE VENT - A/C; BG VENT RATE 12 set
[2019-07-19] MEDS: FOLIC ACID/VITAMIN B COMP W-C TABLET NG SCH (09:08)
[2019-07-19] MEDS: MEROPENEM 500 MG in SODIUM CHLORIDE 0.9% 50 ML IV SCH (14:43)
[2019-07-19 16:19] LABS: NUCLEATED RED BLOOD CELLS 2 /100 WBC
[2019-07-19 16:20] LABS: PLATELET ESTIMATE NORMAL
[2019-07-19] MEDS: ACETAMINOPHEN 325MG TABLET PO PRN (19:45)
[2019-07-20] VITALS (81 sets, daily range): BP systolic 107–161; BP diastolic 56–129
[2019-07-20] MEDS: ACETYLCYSTEINE 100MG/ML 10% VIAL 4ML INH SCH ×3 (01:00→17:24)
[2019-07-20] MEDS: IPRATROPIUM/ALBUTEROL 0.5-3(2.5)MG/3ML NEB HHN SCH ×5 (01:00→20:41)
[2019-07-20] MEDS: BLOOD SUGAR DIAGNOSTIC STRIP TEST SCH ×5 (03:54→20:00)
[2019-07-20 05:42] LABS: HEMATOCRIT. 23.1 % (36.0-48.0); HEMOGLOBIN. 7.7 g/dL (12.0-16.0); MEAN CORPUSCULAR HEMOGLOBIN 28.2 pg (28.0-32.0); MEAN CORPUSCULAR VOLUME 84.3 fL (81.0-99.0); MEAN PLATELET VOLUME 8.9 fl (7.4-10.4); PLATELET 391 x1000/uL (130-400); RED BLOOD CELL COUNT 2.74 mill/uL (4.2-5.4); RED CELL DISTRIBUTION WIDTH 16.3 % (11.6-14.6)
[2019-07-20 06:09] LABS: PHOSPHORUS 7.2 mg/dL (2.5-4.9)
[2019-07-20] MEDS: FOLIC ACID/VITAMIN B COMP W-C TABLET NG SCH (08:26)
[2019-07-20 10:00] LABS: BG BASE EXCESS 1.4 mmol/L (-2.0-2.0); BG CARBOXYHEMOGLOBIN 0.2 % (0.5-1.5); BG DEOXYHEMOGLOBIN 2.9 % (0.0-5.0); BG FRACTION INSPIRED OXYGEN 40; BG HCO3 ACT 25.8 mmol/L (22.0-26.0); BG METHEMOGLOBIN 0.4 % (0.0-1.5); BG OXYGEN SATURATION 97.1 % (92.0-98.5); BG OXYHEMOGLOBIN 96.5 % (94.0-97.0); BG PCO2 39.9 mmHg (35.0-45.0); BG PH 7.429 (7.350-7.450); BG PO2 101.9 mmHg (75.0-100.0); BG PRESSURE SUPPORT 16; BG SAMPLE SITE RIGHT RADIAL; BG TOTAL HEMOGLOBIN 8.1 g/dL (12.0-18.0); BG VENT MODE VENT - PCV/IMV; BG VENT RATE 12 set
[2019-07-20] MEDS: LORAZEPAM 2MG/ML CPJ IV PRN (10:47)
[2019-07-20] MEDS: MORPHINE SULFATE 2 MG/ML CPJ (NOT FOR IM USE) IV PRN (12:15)
[2019-07-20] MEDS: ACETAMINOPHEN 325MG TABLET PO PRN ×2 (12:38→23:02)
[2019-07-20 16:09] LABS: ATYPICAL LYMPHOCYTES 2; NUCLEATED RED BLOOD CELLS 1 /100 WBC; PLATELET ESTIMATE NORMAL
[2019-07-20] MEDS: MEROPENEM 500 MG in SODIUM CHLORIDE 0.9% 50 ML IV SCH (16:54)
[2019-07-20] MEDS: LEVOFLOXACIN 250MG PREMIX 50 ML IV SCH (17:41)
[2019-07-20] MEDS: DIPHENHYDRAMINE 50MG/ML VIAL IV PRN (18:37)
[2019-07-21] VITALS (76 sets, daily range): BP systolic 104–187; BP diastolic 52–127
[2019-07-21] MEDS: IPRATROPIUM/ALBUTEROL 0.5-3(2.5)MG/3ML NEB HHN SCH ×6 (00:04→20:29)
[2019-07-21] MEDS: LORAZEPAM 2MG/ML CPJ IV PRN ×3 (02:51→21:40)
[2019-07-21] MEDS: BLOOD SUGAR DIAGNOSTIC STRIP TEST SCH ×6 (04:33→20:00)
[2019-07-21 05:28] LABS: HEMATOCRIT. 21.8 % (36.0-48.0); HEMOGLOBIN. 7.3 g/dL (12.0-16.0); MEAN CORPUSCULAR HEMOGLOBIN 28.7 pg (28.0-32.0); MEAN CORPUSCULAR VOLUME 85.4 fL (81.0-99.0); MEAN PLATELET VOLUME 8.5 fl (7.4-10.4); PLATELET 368 x1000/uL (130-400); RED BLOOD CELL COUNT 2.55 mill/uL (4.2-5.4); RED CELL DISTRIBUTION WIDTH 16.1 % (11.6-14.6)
[2019-07-21 09:58] LABS: PLATELET ESTIMATE NORMAL
[2019-07-21] MEDS ORDERED: VANCOMYCIN 750 MG PREMIX 150 ML IV SCH ×2 (10:00→16:00)
[2019-07-21] MEDS: FOLIC ACID/VITAMIN B COMP W-C TABLET NG SCH (10:17)
[2019-07-21] MEDS: ACETAMINOPHEN 325MG TABLET PO PRN (10:17)
[2019-07-21 11:00] LABS: CHLORIDE 103 mEq/L (98-107)
[2019-07-21 11:06] LABS: PHOSPHORUS 6.7 mg/dL (2.5-4.9)
[2019-07-21] MEDS: DIPHENHYDRAMINE 50MG/ML VIAL IV PRN (11:53)
[2019-07-21] MEDS: EPOETIN ALFA 4000UNITS/ML VIAL SUBCUT SCH (15:48)
[2019-07-21] MEDS: MEROPENEM 500 MG in SODIUM CHLORIDE 0.9% 50 ML IV SCH (15:48)
[2019-07-21] MEDS: HYDRALAZINE 20MG/ML VIAL IV PRN (17:54)
[2019-07-22] VITALS (24 sets, daily range): BP systolic 107–169; BP diastolic 59–113
[2019-07-22] MEDS: IPRATROPIUM/ALBUTEROL 0.5-3(2.5)MG/3ML NEB HHN SCH ×6 (00:20→20:41)
[2019-07-22] MEDS: DIPHENHYDRAMINE 50MG/ML VIAL IV PRN (00:22)
[2019-07-22] MEDS: LORAZEPAM 2MG/ML CPJ IV PRN (03:57)
[2019-07-22] MEDS: BLOOD SUGAR DIAGNOSTIC STRIP TEST SCH ×6 (03:57→20:00)
[2019-07-22 05:33] LABS: HEMATOCRIT. 22.1 % (36.0-48.0); HEMOGLOBIN. 7.4 g/dL (12.0-16.0); MEAN CORPUSCULAR VOLUME 86.5 fL (81.0-99.0); MEAN PLATELET VOLUME 8.6 fl (7.4-10.4); PLATELET 356 x1000/uL (130-400); RED BLOOD CELL COUNT 2.55 mill/uL (4.2-5.4); RED CELL DISTRIBUTION WIDTH 16.2 % (11.6-14.6)
[2019-07-22 08:57] LABS: PLATELET ESTIMATE NORMAL
[2019-07-22] MEDS: FOLIC ACID/VITAMIN B COMP W-C TABLET NG SCH (10:37)
[2019-07-22 11:15] LABS: BG BASE EXCESS 2.8 mmol/L (-2.0-2.0); BG CARBOXYHEMOGLOBIN 0.3 % (0.5-1.5); BG DEOXYHEMOGLOBIN 1.5 % (0.0-5.0); BG FRACTION INSPIRED OXYGEN 40; BG HCO3 ACT 27.3 mmol/L (22.0-26.0); BG METHEMOGLOBIN 0.5 % (0.0-1.5); BG OXYGEN SATURATION 98.5 % (92.0-98.5); BG OXYHEMOGLOBIN 97.7 % (94.0-97.0); BG PCO2 41.4 mmHg (35.0-45.0); BG PH 7.437 (7.350-7.450); BG PO2 136.9 mmHg (75.0-100.0); BG PRESSURE SUPPORT 16; BG SAMPLE SITE RIGHT RADIAL; BG TOTAL HEMOGLOBIN 7.6 g/dL (12.0-18.0); BG VENT MODE VENT - CPAP
[2019-07-22] MEDS: ACETYLCYSTEINE 100MG/ML 10% VIAL 4ML INH SCH ×2 (12:44→20:41)
[2019-07-22] MEDS: MEROPENEM 500 MG in SODIUM CHLORIDE 0.9% 50 ML IV SCH (17:01)
[2019-07-22] MEDS: LEVOFLOXACIN 250MG PREMIX 50 ML IV SCH (17:01)
[2019-07-22 20:57] LABS: MEAN CORPUSCULAR HEMOGLOBIN 28.5 pg (28.0-32.0); MEAN CORPUSCULAR VOLUME 85.2 fL (81.0-99.0); MEAN PLATELET VOLUME 8.1 fl (7.4-10.4); PLATELET 357 x1000/uL (130-400); RED BLOOD CELL COUNT 2.39 mill/uL (4.2-5.4); RED CELL DISTRIBUTION WIDTH 15.9 % (11.6-14.6)
[2019-07-22 21:05] LABS: INR 1.1; PROTHROMBIN TIME 11.6 sec (9.6-11.0)
[2019-07-22 21:21] LABS: HEMATOCRIT. 20.3 % (36.0-48.0); HEMOGLOBIN. 6.8 g/dL (12.0-16.0)
[2019-07-22] MEDS: EPOETIN ALFA 4000UNITS/ML VIAL SUBCUT SCH (21:22)
[2019-07-22 22:09] LABS: PLATELET ESTIMATE NORMAL
[2019-07-23] VITALS (95 sets, daily range): BP systolic 100–189; BP diastolic 44–117
[2019-07-23] MEDS: IPRATROPIUM/ALBUTEROL 0.5-3(2.5)MG/3ML NEB HHN SCH ×6 (00:24→20:28)
[2019-07-23] MEDS: BLOOD SUGAR DIAGNOSTIC STRIP TEST SCH ×7 (00:28→23:52)
[2019-07-23] MEDS: ACETYLCYSTEINE 100MG/ML 10% VIAL 4ML INH SCH ×3 (04:15→16:05)
[2019-07-23 06:23] LABS: HEMATOCRIT. 28.4 % (36.0-48.0); HEMOGLOBIN. 9.7 g/dL (12.0-16.0); MEAN CORPUSCULAR HEMOGLOBIN 29.7 pg (28.0-32.0); MEAN CORPUSCULAR VOLUME 86.7 fL (81.0-99.0); MEAN PLATELET VOLUME 8.2 fl (7.4-10.4); PLATELET 352 x1000/uL (130-400); RED BLOOD CELL COUNT 3.28 mill/uL (4.2-5.4)
[2019-07-23 06:31] LABS: INR 1.1; PROTHROMBIN TIME 11.3 sec (9.6-11.0)
[2019-07-23 06:33] LABS: CHLORIDE 104 mEq/L (98-107)
[2019-07-23 06:45] LABS: HAPTOGLOBIN <31.0 mg/dL (30-200)
[2019-07-23 07:51] LABS: NUCLEATED RED BLOOD CELLS 2 /100 WBC
[2019-07-23 07:52] LABS: PLATELET ESTIMATE NORMAL
[2019-07-23] MEDS: HYDROCORTISONE 1% CREAM 30GM TOP PRN ×2 (07:52→13:57)
[2019-07-23] MEDS: FOLIC ACID/VITAMIN B COMP W-C TABLET NG SCH (08:37)
[2019-07-23 12:04] LABS: BG BASE EXCESS 0.5 mmol/L (-2.0-2.0); BG CARBOXYHEMOGLOBIN 0.3 % (0.5-1.5); BG DEOXYHEMOGLOBIN 1.3 % (0.0-5.0); BG FRACTION INSPIRED OXYGEN 40; BG HCO3 ACT 25.3 mmol/L (22.0-26.0); BG METHEMOGLOBIN 0.4 % (0.0-1.5); BG OXYGEN SATURATION 98.7 % (92.0-98.5); BG PCO2 41.3 mmHg (35.0-45.0); BG PH 7.405 (7.350-7.450); BG PO2 158.9 mmHg (75.0-100.0); BG PRESSURE SUPPORT 8; BG SAMPLE SITE RIGHT RADIAL; BG TOTAL HEMOGLOBIN 11.2 g/dL (12.0-18.0); BG VENT MODE VENT - CPAP
[2019-07-23] MEDS: HYDRALAZINE 20MG/ML VIAL IV PRN (12:18)
[2019-07-23] MEDS: RACEPINEPHRINE 2.25% 0.5ML NEB VIAL HHN PRN (12:19)
[2019-07-23] MEDS: KETOROLAC 15MG/ML VIAL IV PRN (13:56)
[2019-07-23] MEDS: DIPHENHYDRAMINE 50MG/ML VIAL IV PRN ×2 (13:57→23:52)
[2019-07-23] MEDS: ENALAPRIL 1.25MG/ML VIAL 1ML IV SCH ×2 (17:12→23:52)
[2019-07-23] MEDS: ACETAMINOPHEN 325MG TABLET PO PRN (22:54)
[2019-07-24] VITALS (30 sets, daily range): BP systolic 110–164; BP diastolic 28–132
[2019-07-24] MEDS: IPRATROPIUM/ALBUTEROL 0.5-3(2.5)MG/3ML NEB HHN SCH ×5 (00:52→21:11)
[2019-07-24] MEDS: ACETYLCYSTEINE 100MG/ML 10% VIAL 4ML INH SCH ×2 (00:52→08:26)
[2019-07-24] MEDS: BLOOD SUGAR DIAGNOSTIC STRIP TEST SCH ×5 (04:32→20:00)
[2019-07-24 05:23] LABS: HEMATOCRIT. 29.8 % (36.0-48.0); HEMOGLOBIN. 10.1 g/dL (12.0-16.0); MEAN CORPUSCULAR HEMOGLOBIN 29.4 pg (28.0-32.0); MEAN CORPUSCULAR VOLUME 87.1 fL (81.0-99.0); MEAN PLATELET VOLUME 8.2 fl (7.4-10.4); PLATELET 345 x1000/uL (130-400); RED BLOOD CELL COUNT 3.42 mill/uL (4.2-5.4); RED CELL DISTRIBUTION WIDTH 15.6 % (11.6-14.6)
[2019-07-24 05:32] LABS: CHLORIDE 103 mEq/L (98-107)
[2019-07-24] MEDS: ENALAPRIL 1.25MG/ML VIAL 1ML IV SCH ×3 (05:40→17:04)
[2019-07-24] MEDS: FOLIC ACID/VITAMIN B COMP W-C TABLET NG SCH (09:05)
[2019-07-24] MEDS: HYDRALAZINE 20MG/ML VIAL IV PRN (10:13)
[2019-07-24 11:29] LABS: PLATELET ESTIMATE NORMAL
[2019-07-24] MEDS: KETOROLAC 15MG/ML VIAL IV PRN (14:10)
[2019-07-24] MEDS: LEVOFLOXACIN 250MG PREMIX 50 ML IV SCH (15:26)
[2019-07-25] VITALS (22 sets, daily range): BP systolic 125–181; BP diastolic 22–97
[2019-07-25] MEDS: BLOOD SUGAR DIAGNOSTIC STRIP TEST SCH ×7 (00:17→22:18)
[2019-07-25] MEDS: ENALAPRIL 1.25MG/ML VIAL 1ML IV SCH ×4 (00:17→17:46)
[2019-07-25] MEDS: ACETYLCYSTEINE 100MG/ML 10% VIAL 4ML INH SCH ×3 (00:51→15:14)
[2019-07-25] MEDS: IPRATROPIUM/ALBUTEROL 0.5-3(2.5)MG/3ML NEB HHN SCH ×5 (00:51→20:19)
[2019-07-25 07:28] LABS: HEMATOCRIT. 27.6 % (36.0-48.0); HEMOGLOBIN. 9.2 g/dL (12.0-16.0); MEAN CORPUSCULAR HEMOGLOBIN 29.4 pg (28.0-32.0); MEAN PLATELET VOLUME 8.3 fl (7.4-10.4); PLATELET 302 x1000/uL (130-400); RED BLOOD CELL COUNT 3.13 mill/uL (4.2-5.4); RED CELL DISTRIBUTION WIDTH 15.5 % (11.6-14.6)
[2019-07-25] MEDS: FOLIC ACID/VITAMIN B COMP W-C TABLET NG SCH (07:52)
[2019-07-25] MEDS: CLONIDINE 0.1MG TABLET PO PRN (08:18)
[2019-07-25] MEDS ORDERED: THROAT LOZENGES-BENZOCAINE/MENTH/CETYLPYRD CL LOZENGES MM PRN (13:00)
[2019-07-25 13:07] LABS: PLATELET ESTIMATE NORMAL
[2019-07-26] VITALS (23 sets, daily range): BP systolic 123–165; BP diastolic 68–98
[2019-07-26] MEDS: BLOOD SUGAR DIAGNOSTIC STRIP TEST SCH ×6 (00:39→20:12)
[2019-07-26] MEDS: ENALAPRIL 1.25MG/ML VIAL 1ML IV SCH ×4 (00:43→17:09)
[2019-07-26] MEDS: IPRATROPIUM/ALBUTEROL 0.5-3(2.5)MG/3ML NEB HHN SCH ×4 (02:06→21:23)
[2019-07-26 06:54] LABS: HEMATOCRIT. 26.1 % (36.0-48.0); MEAN CORPUSCULAR HEMOGLOBIN 30.3 pg (28.0-32.0); MEAN CORPUSCULAR VOLUME 87.5 fL (81.0-99.0); MEAN PLATELET VOLUME 8.1 fl (7.4-10.4); PLATELET 253 x1000/uL (130-400); RED BLOOD CELL COUNT 2.98 mill/uL (4.2-5.4); RED CELL DISTRIBUTION WIDTH 15.6 % (11.6-14.6)
[2019-07-26] MEDS: FOLIC ACID/VITAMIN B COMP W-C TABLET NG SCH (08:44)
[2019-07-26] MEDS: ONDANSETRON HCL 4MG/2ML INJ IV PRN ×2 (08:44→18:21)
[2019-07-26] MEDS: ACETYLCYSTEINE 100MG/ML 10% VIAL 4ML INH SCH ×2 (09:08→16:32)
[2019-07-26] MEDS ORDERED: SODIUM BICARBONATE 4% (2.4MEQ) 5ML VIAL IV ONE ×2 (10:41→13:17)
[2019-07-26] MEDS ORDERED: LIDOCAINE HCL 1% 20ML VIAL (Pyxis) INJ ONE ×2 (10:41→13:17)
[2019-07-26] MEDS ORDERED: CEFAZOLIN 1000MG PREMIX 50 ML IV NR (10:45)
[2019-07-26] MEDS ORDERED: FENTANYL CITRATE/PF 50MCG/ML 2ML VIAL ONE (10:51)
[2019-07-26] MEDS ORDERED: FENTANYL CITRATE/PF 50MCG/ML 2ML VIAL IV ONE (11:30)
[2019-07-26 14:37] LABS: BG BASE EXCESS -1.7 mmol/L (-2.0-2.0); BG CARBOXYHEMOGLOBIN 0.6 % (0.5-1.5); BG DEOXYHEMOGLOBIN 8.9 % (0.0-5.0); BG FRACTION INSPIRED OXYGEN 21; BG HCO3 ACT 22.7 mmol/L (22.0-26.0); BG METHEMOGLOBIN 0.4 % (0.0-1.5); BG OXYHEMOGLOBIN 90.1 % (94.0-97.0); BG PCO2 37.1 mmHg (35.0-45.0); BG PH 7.405 (7.350-7.450); BG PO2 62.2 mmHg (75.0-100.0); BG SAMPLE SITE LEFT RADIAL; BG TOTAL HEMOGLOBIN 10.6 g/dL (12.0-18.0); BG VENT MODE ROOM AIR
[2019-07-26 15:39] LABS: INR 1.1; PARTIAL THROMBOPLASTIN TIME 30.6 sec (23.4-31.0); PROTHROMBIN TIME 11.7 sec (9.6-11.0)
[2019-07-26] MEDS: BUDESONIDE 0.5MG/2ML NEB HHN SCH (16:32)
[2019-07-26] MEDS: KETOROLAC 15MG/ML VIAL IV PRN (18:22)
[2019-07-27] VITALS (13 sets, daily range): BP systolic 129–182; BP diastolic 60–89
[2019-07-27] MEDS: ENALAPRIL 1.25MG/ML VIAL 1ML IV SCH ×3 (00:56→11:19)
[2019-07-27] MEDS: BLOOD SUGAR DIAGNOSTIC STRIP TEST SCH ×4 (00:58→11:19)
[2019-07-27] MEDS: ACETYLCYSTEINE 100MG/ML 10% VIAL 4ML INH SCH ×2 (01:09→12:52)
[2019-07-27] MEDS: IPRATROPIUM/ALBUTEROL 0.5-3(2.5)MG/3ML NEB HHN SCH ×6 (01:10→20:53)
[2019-07-27 04:27] LABS: PLATELET ESTIMATE NORMAL
[2019-07-27] MEDS: RACEPINEPHRINE 2.25% 0.5ML NEB VIAL HHN PRN (05:29)
[2019-07-27 07:33] LABS: CHLORIDE 99 mEq/L (98-107)
[2019-07-27 07:36] LABS: HEMATOCRIT. 26.5 % (36.0-48.0); HEMOGLOBIN. 8.8 g/dL (12.0-16.0); MEAN CORPUSCULAR HEMOGLOBIN 29.1 pg (28.0-32.0); MEAN CORPUSCULAR VOLUME 87.3 fL (81.0-99.0); MEAN PLATELET VOLUME 8.1 fl (7.4-10.4); PLATELET 226 x1000/uL (130-400); RED BLOOD CELL COUNT 3.03 mill/uL (4.2-5.4); RED CELL DISTRIBUTION WIDTH 15.5 % (11.6-14.6)
[2019-07-27 07:52] LABS: HAPTOGLOBIN <31.0 mg/dL (30-200)
[2019-07-27] MEDS: FOLIC ACID/VITAMIN B COMP W-C TABLET NG SCH (08:55)
[2019-07-27] MEDS: ONDANSETRON HCL 4MG/2ML INJ IV PRN (08:56)
[2019-07-27] MEDS: BUDESONIDE 0.5MG/2ML NEB HHN SCH ×2 (09:15→20:53)
[2019-07-27] MEDS ORDERED: AMLO5TAB88 MT (09:57)
[2019-07-27] MEDS ORDERED: CHOL200026 PO (09:57)
[2019-07-27] MEDS ORDERED: BENA1TAB18 MT (09:57)
[2019-07-27 12:26] LABS: PLATELET ESTIMATE NORMAL
[2019-07-27] MEDS: AMLODIPINE 5MG TABLET PO SCH (14:47)
[2019-07-27] MEDS: CHOLECALCIFEROL (D3) 1000 UNIT TABLET PO SCH (14:48)
[2019-07-27] MEDS: CLONIDINE 0.1MG TABLET PO PRN (17:58)
[2019-07-28] VITALS (9 sets, daily range): BP systolic 112–149; BP diastolic 62–79
[2019-07-28] MEDS: IPRATROPIUM/ALBUTEROL 0.5-3(2.5)MG/3ML NEB HHN SCH ×6 (00:17→21:08)
[2019-07-28] MEDS: SODIUM CHLORIDE 45ML SPRAY NS PRN (01:27)
[2019-07-28] MEDS: BUDESONIDE 0.5MG/2ML NEB HHN SCH ×2 (09:00→21:08)
[2019-07-28] MEDS: HYDROCHLOROTHIAZIDE 12.5MG CAPSULE PO SCH (11:10)
[2019-07-28] MEDS: BENAZEPRIL 5MG TABLET PO SCH (11:10)
[2019-07-28] MEDS: CHOLECALCIFEROL (D3) 1000 UNIT TABLET PO SCH (11:11)
[2019-07-28] MEDS: FOLIC ACID/VITAMIN B COMP W-C TABLET NG SCH (11:11)
[2019-07-28] MEDS: ONDANSETRON HCL 4MG/2ML INJ IV PRN (11:25)
[2019-07-28] MEDS: AMLODIPINE 5MG TABLET PO SCH (17:43)
[2019-07-28] MEDS: ACETAMINOPHEN 325MG TABLET PO PRN (20:38)
[2019-07-29] VITALS (8 sets, daily range): BP systolic 123–156; BP diastolic 62–90
[2019-07-29] MEDS: IPRATROPIUM/ALBUTEROL 0.5-3(2.5)MG/3ML NEB HHN SCH ×6 (01:00→20:46)
[2019-07-29] MEDS: ONDANSETRON HCL 4MG/2ML INJ IV PRN (08:07)
[2019-07-29] MEDS: FOLIC ACID/VITAMIN B COMP W-C TABLET NG SCH (08:18)
[2019-07-29] MEDS: CHOLECALCIFEROL (D3) 1000 UNIT TABLET PO SCH (08:19)
[2019-07-29] MEDS: AMLODIPINE 5MG TABLET PO SCH (08:21)
[2019-07-29] MEDS: BENAZEPRIL 5MG TABLET PO SCH (08:22)
[2019-07-29] MEDS: HYDROCHLOROTHIAZIDE 12.5MG CAPSULE PO SCH (08:22)
[2019-07-29] MEDS: BUDESONIDE 0.5MG/2ML NEB HHN SCH ×2 (10:04→20:47)
[2019-07-29 12:46] LABS: BASOPHILS % 0.9 % (0.0-2.0); EOSINOPHILS % 8.4 % (0.0-5.0); HEMATOCRIT. 28.1 % (36.0-48.0); HEMOGLOBIN. 9.6 g/dL (12.0-16.0); MEAN CORPUSCULAR HEMOGLOBIN 29.7 pg (28.0-32.0); MEAN CORPUSCULAR VOLUME 86.4 fL (81.0-99.0); MEAN PLATELET VOLUME 7.7 fl (7.4-10.4); MONOCYTES % 12.3 % (2.0-8.0); NEUTROPHILS % 61.4 % (40.0-76.0); PLATELET 190 x1000/uL (130-400); RED BLOOD CELL COUNT 3.25 mill/uL (4.2-5.4); RED CELL DISTRIBUTION WIDTH 15.9 % (11.6-14.6)
[2019-07-29] MEDS: ACETAMINOPHEN 325MG TABLET PO PRN (20:03)
[2019-07-30] VITALS: BP 149/61
[2019-07-30] MEDS: IPRATROPIUM/ALBUTEROL 0.5-3(2.5)MG/3ML NEB HHN SCH ×6 (01:11→21:32)
[2019-07-30 04:00] VITALS: BP 146/81
[2019-07-30 07:00] LABS: EOSINOPHILS % 14.1 % (0.0-5.0); HEMATOCRIT. 26.9 % (36.0-48.0); HEMOGLOBIN. 9.1 g/dL (12.0-16.0); LYMPHOCYTES % 22.7 % (20.0-50.0); MEAN CORPUSCULAR HEMOGLOBIN 29.7 pg (28.0-32.0); MEAN CORPUSCULAR VOLUME 87.4 fL (81.0-99.0); MONOCYTES % 11.4 % (2.0-8.0); NEUTROPHILS % 50.8 % (40.0-76.0); PLATELET 174 x1000/uL (130-400); RED BLOOD CELL COUNT 3.07 mill/uL (4.2-5.4); RED CELL DISTRIBUTION WIDTH 15.4 % (11.6-14.6)
[2019-07-30 08:00] VITALS: BP 137/79
[2019-07-30] MEDS: CHOLECALCIFEROL (D3) 1000 UNIT TABLET PO SCH (09:20)
[2019-07-30] MEDS: FOLIC ACID/VITAMIN B COMP W-C TABLET NG SCH (09:20)
[2019-07-30] MEDS: HYDROCHLOROTHIAZIDE 12.5MG CAPSULE PO SCH (09:20)
[2019-07-30] MEDS: AMLODIPINE 5MG TABLET PO SCH (09:22)
[2019-07-30] MEDS: BENAZEPRIL 5MG TABLET PO SCH (09:22)
[2019-07-30 12:00] VITALS: BP 147/81
[2019-07-30 16:00] VITALS: BP 147/81
[2019-07-30] MEDS: ONDANSETRON HCL 4MG/2ML INJ IV PRN (17:26)
[2019-07-30 20:00] VITALS: BP 152/77
[2019-07-30] MEDS: SODIUM CHLORIDE 45ML SPRAY NS PRN (20:29)
[2019-07-30] MEDS: ACETAMINOPHEN 325MG TABLET PO PRN (20:29)
[2019-07-31] MEDS: IPRATROPIUM/ALBUTEROL 0.5-3(2.5)MG/3ML NEB HHN SCH ×4 (00:53→21:20)
[2019-07-31] MEDS: RACEPINEPHRINE 2.25% 0.5ML NEB VIAL HHN PRN (00:54)
[2019-07-31 04:00] VITALS: BP 136/72
[2019-07-31 08:00] VITALS: BP 125/72
[2019-07-31] MEDS: FOLIC ACID/VITAMIN B COMP W-C TABLET NG SCH (09:28)
[2019-07-31] MEDS: AMLODIPINE 5MG TABLET PO SCH (09:28)
[2019-07-31] MEDS: HYDROCHLOROTHIAZIDE 12.5MG CAPSULE PO SCH (09:28)
[2019-07-31] MEDS: CHOLECALCIFEROL (D3) 1000 UNIT TABLET PO SCH (09:28)
[2019-07-31] MEDS: BENAZEPRIL 5MG TABLET PO SCH (09:29)
[2019-07-31 11:55] LABS: BASOPHILS % 0.9 % (0.0-2.0); EOSINOPHILS % 10.3 % (0.0-5.0); HEMOGLOBIN. 9.4 g/dL (12.0-16.0); LYMPHOCYTES % 21.2 % (20.0-50.0); MEAN CORPUSCULAR HEMOGLOBIN 29.2 pg (28.0-32.0); MEAN CORPUSCULAR VOLUME 87.5 fL (81.0-99.0); MONOCYTES % 12.3 % (2.0-8.0); NEUTROPHILS % 55.3 % (40.0-76.0); PLATELET 170 x1000/uL (130-400); RED CELL DISTRIBUTION WIDTH 15.5 % (11.6-14.6)
[2019-07-31 12:00] VITALS: BP 127/79
[2019-07-31 16:00] VITALS: BP 129/72
[2019-07-31] MEDS: ACETAMINOPHEN 325MG TABLET PO PRN (18:26)
[2019-07-31] MEDS ORDERED: GUAIFENESIN 200MG/10ML SUGAR FREE UDC PO PRN (18:30)
[2019-07-31 20:00] VITALS: BP 128/68
[2019-08-01] VITALS: BP 132/73
[2019-08-01] MEDS: IPRATROPIUM/ALBUTEROL 0.5-3(2.5)MG/3ML NEB HHN SCH ×4 (00:38→13:07)
[2019-08-01 04:00] VITALS: BP 131/78
[2019-08-01 08:02] LABS: BASOPHILS % 1.1 % (0.0-2.0); EOSINOPHILS % 10.9 % (0.0-5.0); HEMATOCRIT. 24.8 % (36.0-48.0); HEMOGLOBIN. 8.6 g/dL (12.0-16.0); LYMPHOCYTES % 28.3 % (20.0-50.0); MEAN CORPUSCULAR HEMOGLOBIN 30.6 pg (28.0-32.0); MEAN CORPUSCULAR VOLUME 88.1 fL (81.0-99.0); MEAN PLATELET VOLUME 8.3 fl (7.4-10.4); MONOCYTES % 12.4 % (2.0-8.0); NEUTROPHILS % 47.3 % (40.0-76.0); PLATELET 153 x1000/uL (130-400); RED BLOOD CELL COUNT 2.82 mill/uL (4.2-5.4); RED CELL DISTRIBUTION WIDTH 15.4 % (11.6-14.6)
[2019-08-01] MEDS: HYDROCHLOROTHIAZIDE 12.5MG CAPSULE PO SCH (09:00)
[2019-08-01] MEDS: AMLODIPINE 5MG TABLET PO SCH (09:00)
[2019-08-01] MEDS: BENAZEPRIL 5MG TABLET PO SCH (09:00)
[2019-08-01] MEDS ORDERED: HEPARIN SODIUM 1,000 UNIT/1ML VIAL IV SCH (09:30)
[2019-08-01] MEDS: FOLIC ACID/VITAMIN B COMP W-C TABLET NG SCH (11:26)
[2019-08-01] MEDS: CHOLECALCIFEROL (D3) 1000 UNIT TABLET PO SCH (11:27)
[2019-08-01 11:56] VITALS: BP 114/86
== END 2019-08-01 13:28 | disposition home or self-care (01) | DRG 720 ==
LOC: ER 08:28 → MICUSO 12:15 → EDBEDREQ 12:17 → ENRESERV 14:23 → CANRESERV 14:23 → EDBEDREQSVC 17:12 → ENRESERV 22:19 → 3WST 07-24 14:50 → 6EST 07-30 23:52
PROVIDERS: ADMIT Hospitalist; ATTEND Hospitalist
PROC: 5A1955Z Respiratory Ventilation, Greater than 96 Consecutive Hours (ICD-10-PCS; principal; 2019-07-09)
PROC: 0BH17EZ Insertion of Endotracheal Airway into Trachea, Via Natural or Artificial Opening (ICD-10-PCS; 2019-07-09)
PROC: 02HV33Z Insertion of Infusion Device into Superior Vena Cava, Percutaneous Approach (ICD-10-PCS; 2019-07-10)
PROC: B548ZZA Ultrasonography of Superior Vena Cava, Guidance (ICD-10-PCS; 2019-07-10)
PROC: 30233N1 Transfusion of Nonautologous Red Blood Cells into Peripheral Vein, Percutaneous Approach (ICD-10-PCS; 2019-07-10)
PROC: 02HV33Z Insertion of Infusion Device into Superior Vena Cava, Percutaneous Approach (ICD-10-PCS; 2019-07-11)
PROC: B548ZZA Ultrasonography of Superior Vena Cava, Guidance (ICD-10-PCS; 2019-07-11)
PROC: 06HY33Z Insertion of Infusion Device into Lower Vein, Percutaneous Approach (ICD-10-PCS; 2019-07-20)
PROC: B54CZZZ Ultrasonography of Left Lower Extremity Veins (ICD-10-PCS; 2019-07-20)
PROC: 5A1D70Z Performance of Urinary Filtration, Intermittent, Less than 6 Hours Per Day (ICD-10-PCS; 2019-07-25)
PROC: 0JH63XZ Insertion of Tunneled Vascular Access Device into Chest Subcutaneous Tissue and Fascia, Percutaneous Approach (ICD-10-PCS; 2019-07-26)
PROC: 02HV33Z Insertion of Infusion Device into Superior Vena Cava, Percutaneous Approach (ICD-10-PCS; 2019-07-26)
PROC: B5181ZA Fluoroscopy of Superior Vena Cava using Low Osmolar Contrast, Guidance (ICD-10-PCS; 2019-07-26)
PROC: 5A1D70Z Performance of Urinary Filtration, Intermittent, Less than 6 Hours Per Day (ICD-10-PCS; 2019-07-26)
PROC: 5A1D70Z Performance of Urinary Filtration, Intermittent, Less than 6 Hours Per Day (ICD-10-PCS; 2019-07-29)
PROC: 5A1D70Z Performance of Urinary Filtration, Intermittent, Less than 6 Hours Per Day (ICD-10-PCS; 2019-07-31)
DX: A41.9 Sepsis, unspecified organism (principal); J96.00 Acute respiratory failure, unspecified whether with hypoxia or hypercapnia; K72.00 Acute and subacute hepatic failure without coma; E43 Unspecified severe protein-calorie malnutrition; J15.211 Pneumonia due to Methicillin susceptible Staphylococcus aureus; N17.0 Acute kidney failure with tubular necrosis; R65.21 Severe sepsis with septic shock; G93.41 Metabolic encephalopathy; K85.90 Acute pancreatitis without necrosis or infection, unspecified; D69.6 Thrombocytopenia, unspecified; E87.2 Acidosis; R74.0 Nonspecific elevation of levels of transaminase and lactic acid dehydrogenase [LDH]; B50.9 Plasmodium falciparum malaria, unspecified; T82.868A Thrombosis due to vascular prosthetic devices, implants and grafts, initial encounter; Y84.1 Kidney dialysis as the cause of abnormal reaction of the patient, or of later complication, without mention of misadventure at the time of the procedure; Y92.230 Patient room in hospital as the place of occurrence of the external cause; N39.0 Urinary tract infection, site not specified; D64.9 Anemia, unspecified; B96.20 Unspecified Escherichia coli [E. coli] as the cause of diseases classified elsewhere; Z16.12 Extended spectrum beta lactamase (ESBL) resistance; D72.1 Eosinophilia; E16.2 Hypoglycemia, unspecified; E78.1 Pure hyperglyceridemia; F41.9 Anxiety disorder, unspecified; I10 Essential (primary) hypertension; Z68.30 Body mass index [BMI] 30.0-30.9, adult
CPT/HCPCS: 36415; 36589; 36600; 70551; 71045; 71250; 76700; 76937; 77001; 80048; 80053; 80076; 80202; 81003; 82140; 82247; 82375; 82550; 82805; 82962; 83010; 83605; 83615; 83735; 83880; 84100; 84145; 84443; 84478; 84484; 85025; 85027; 85044; 85379; 86701; 86702; 86705; 86706; 86803; 86850; 86900; 86920; 87070; 87077; 87186; 87207; 87340; 87389; 87535; 87804; 92610; 93005; 93306; 93970; 93971; 94002; 94003; 94640; 94660; 94667; 96365; 96375; 97116; 97162; 97164; 97167; 97530; 97535; 99152; 99153; 99291; C1725; C1750; C1752; C1769; J0330; J0360; J0690; J0692; J0885; J1200; J1265; J1642; J1644; J1885; J1956; J2060; J2185; J2250; J2270; J2405; J2543; J2704; J3010; J3370; J3490; J7030; J7040; J7060; J7070; J7608; J7626; P9016; P9021; G0500